=== PATIENT | male | born 1990 | race Caucasian/White ===

== ENCOUNTER 2018-03-29 10:57 | Emergency (ER) | payer OTHER ==
[~2018-03-29] VITALS: Ht 185.4 cm; Wt 72.6 kg
[2018-03-29 11:19] VITALS: BP 174/98
[2018-03-29] MEDS ORDERED: IBUPROFEN 600 MG TABLET PO ONE ×2 (11:37→12:00)
== END 2018-03-29 11:53 | disposition home or self-care (01) ==
LOC: ER 11:02
DX: M79.1 Myalgia (principal); V43.52XA Car driver injured in collision with other type car in traffic accident, initial encounter; Y93.89 Activity, other specified; Y92.413 State road as the place of occurrence of the external cause; Y99.8 Other external cause status
CPT/HCPCS: 99283; A4606; Z7610